=== PATIENT | male | born 1960 | race Caucasian/White ===

== ENCOUNTER → 2017-12-24 | Outpatient (CLI) | payer BC, OTHER ==
[~2017-12-24] MED LIST: LISINOPRIL20 MG PO; SIMVASTATIN40 MG
== END ==
LOC: ULTRA 11:01
DX: M79.661 Pain in right lower leg (principal); Z86.718 Personal history of other venous thrombosis and embolism

== ENCOUNTER → 2020-10-21 | Outpatient (CLI) | payer BC | LOC: ULTRA 09:56 | PROVIDERS: ATTEND Nurse Practitioner | DX: R10.84 Generalized abdominal pain (principal) ==

== ENCOUNTER → 2021-07-03 | Outpatient (CLI) | payer BC | LOC: CAT 11:53 | PROVIDERS: ATTEND Nurse Practitioner | DX: R51.9 Headache, unspecified (principal); R42 Dizziness and giddiness ==

== ENCOUNTER → 2021-08-23 | Outpatient (CLI) | payer BC | LOC: MRI 07-31 10:25 | PROVIDERS: ATTEND Family Medicine | DX: R90.82 White matter disease, unspecified (principal); R51.9 Headache, unspecified; R42 Dizziness and giddiness; D68.51 Activated protein C resistance ==